=== PATIENT | female | born 1955 | race Asian ===

== ENCOUNTER → 2023-06-06 | Day surgery (SDC) | payer OTHER, MEDICARE ==
--- NOTE | 2023-06-06 17:55 | RAD REPORT ---
EXAM DESCRIPTION: US - Guided FNA Non Breast - 06/06/2023 11:02 am CLINICAL HISTORY: Thyroid nodule ICD E04.1 COMPARISON: May 28, 2023 ultrasound TECHNIQUE: Risks, benefits and alternatives of procedure explained to the patient and informed conse nt obtained. Skin and deeper tissues anesthetized with lidocaine. Under sonographic guidance, five 25 gauge needle passes were obtained into the dominant nodule within the right lobe of the thyroid gland. Specimens given to pathology. Patient experienced no immediate complication IMPRESSION: Fine-needle aspiration of a dominant nodule within right lobe of thyroid gland
== END ==
LOC: FNA 09:35
PROVIDERS: ATTEND Family Medicine
PROC: 0GBH3ZX Excision of Right Thyroid Gland Lobe, Percutaneous Approach, Diagnostic (ICD-10-PCS; principal; 2023-06-06)
DX: E04.1 Nontoxic single thyroid nodule (principal)
CPT/HCPCS: 88162; 88305